=== PATIENT | female | born 1950 | race Caucasian/White ===

== ENCOUNTER → 2016-07-11 | Outpatient (CLI) | payer MEDICARE, BC ==
--- NOTE | 2016-07-11 13:55 | BD ---
EXAMINATION TYPE: MG DEXA axial skeleton. DATE OF EXAM: 07/11/2016 12:41 PM COMPARISON: DEXA bone scan February 28, 2010. CLINICAL HISTORY: Height: 68inches Weight: 200 FRAX RISK QUESTIONS: Alcohol (3 or more units per day): no Family History (Parent hip fracture): no Glucocorticoids (More than 3mos): no (Ex: prednisone, prednisolone, methylprednisolone, dexamethasone, and hydrocortisone). History of Fracture in Adulthood: ankle about 20 years ago Secondary Osteoporosis: 1. Type 1 Diabetes: no 2. Hyperthyroidism: no 3. Menopause before 45: no 4. Malnutrition: no 5. Chronic liver disease: no Rheumatoid Arthritis: no Current Tobacco Use: no RISK FACTORS HISTORY OF: Family History of Osteoporosis: yes, mother Drink Alcohol: very occasionally, socially Active: yes Diet low in dairy products/other sources of calcium: no Postmenopausal woman: yes Take estrogen and/or progesterone medications: not now How long: started age 54 & took for about four years Lost more than 2 inches in height since high school: no Frequent falls: no Poor Health: no Hyperparathyroidism: no Adrenal Insufficiency: no MEDICATIONS: Prednisone or other steroids: no Thyroid Medications: no Osteoporosis Medications: no Additional Medications: multivitamin, cholesterol meds, high blood pressure EXAM MEASUREMENTS: Bone mineral densitometry was performed using the [employer] System. Bone mineral density as measured about the Lumbar spine is: ----- L1-L4(G/cm2): 1.246 T Score Values are as follows: ----- L2: 0.1 ----- L3: 1.0 ----- L4: 0.4 ----- L1-L4: 0.6 Bone mineral density has: Decreased -6.3% since study of: 02/28/2010 Bone mineral density about the R hip (g/cm2): 0.862 Bone mineral density about the L hip (g/cm2): 0.905 T Score values are as follows: -----R Neck: -1.3 -----L Neck: -1.0 -----R Intertrochanter: -0.4 -----L Intertrochanter: -0.5 Bone mineral density has: Decreased -6.9% since study of: 02/28/2010 IMPRESSION: Osteopenia (T Score between -2.5 and -1 as noted by T score values in femoral neck level of the right hip is now present. Bone density is decreased or diminished from prior. There is now slightly increa sed risk of fracture and the patient may be considered for treatment. Re-Screen 1-2 years. NOTE: T-SCORE=SD OF THE YOUNG ADULT MEAN.
--- NOTE | 2016-07-12 08:09 | MM ---
Reason for exam: screening (asymptomatic). Last mammogram was performed 3 years ago. History: Patient is postmenopausal. Taking estrogen for 4 years 2 months beginning at age 53. Taking progesterone for 4 years 2 months beginning at age 53. Physical Findings: A clinical breast exam by your physician is recommended on an annual basis and results should be correlated with mammographic findings. MG 3D Screening Mammo W/Cad Bilateral CC and MLO view(s) were taken. Prior study comparison: July 09, 2013, bilateral digital screening mammo w/CAD. January 31, 2012, bilateral digital screening mammo w/CAD. The breast tissue is heterogeneously dense. This may lower the sensitivity of mammography. There is no discrete abnormality. No significant changes when compared with prior studies. ASSESSMENT: Negative, BI-RAD 1 RECOMMENDATION: Routine screening mammogram of both breasts in 1 year.
== END | disposition home or self-care (01) ==
LOC: RADMAMWWP 11:44
PROVIDERS: ATTEND Family Medicine
DX: Z12.31 Encounter for screening mammogram for malignant neoplasm of breast (principal); M85.851 Other specified disorders of bone density and structure, right thigh
CPT/HCPCS: 77080; 77063; G0202

== ENCOUNTER 2017-12-17 13:20 | Emergency (ER) | payer MEDICARE, BC ==
[2017-12-17 13:47] VITALS: BP 126/85; PULSE 88; RESP 16; TEMP 98.7
[2017-12-17] MEDS ORDERED: IBUPROFEN 600 MG TAB PO STA (13:55)
--- NOTE | 2017-12-17 14:16 | ED ---
Lower Extremity Injury HPI - General Chief Complaint: Extremity Injury, Lower Stated Complaint: lt ankle injury Time Seen by Provider: 12/17/17 13:48 Source: patient, RN notes reviewed Mode of arrival: ambulatory Limitations: no limitations - History of Present Illness Initial Comments: This is a 67-year-old female who presents to the emergency department with chief complaint of left ankle injury. Patient states that at approximately 11: 30 this morning she was walking and fell. She complains of pain to both sides of the left ankle. Patient states that she is having difficulty bearing weight and ambulating but is able to move the ankle normally. She denies any other injuries or trauma. Denies recent fevers or chills, chest pain or shortness of breath, abdominal pain, nausea or vomiting, numbness or tingling. - Related Data Home Medications Medication Instructions Recorded Confirmed Atorvastatin [Lipitor] 20 mg PO HS 02/02/15 02/03/15 Lisinopril-Hctz 20-25 mg 1 each PO DAILY 02/02/15 02/03/15 [Zestoretic 20-25] amLODIPine [Norvasc] 5 mg PO DAILY 02/02/15 02/03/15 Previous Rx's Medication Instructions Recorded Ibuprofen 600 mg PO Q6HR #20 tablet 12/17/17 Allergies Allergy/AdvReac Type Severity Reaction Status Date / Time No Known Allergies Allergy Verified 02/02/15 13:54 Review of Systems ROS Statement: Those systems with pertinent positive or pertinent negative responses have been documented in the HPI. ROS Other: All systems not noted in ROS Statement are negative. Past Medical History Past Medical History: Hypertension Additional Past Medical History / Comment(s): "PROLAPSE HEART VALVE" History of Any Multi-Drug Resistant Organisms: None Reported Past Surgical History: Orthopedic Surgery, Tubal Ligation Additional Past Surgical History / Comment(s): CARPAL TUNNEL -BILATERAL Past Anesthesia/Blood Transfusion Reactions: No Reported Reaction Past Psychological History: No Psychological Hx Reported Smoking Status: Never smoker Past Alcohol Use History: Rare Past Drug Use History: None Reported - Past Family History Sister(s) Family Medical History: Cancer General Exam - General Exam Comments Initial Comments: General: Awake and alert, well-developed; in no apparent distress. Sitting comfortably in a wheelchair. HEENT: Head atraumatic, normocephalic. Pupils are equal, round and reactive to light. Extraocular movements intact. Oropharynx moist without erythema or exudate. Neck: Supple. Normal ROM. Cardiovascular: Regular rate and rhythm. No murmurs, rubs or gallops. Chest symmetrical. Respiratory: Lungs clear to auscultation bilaterally. No wheezes, rales or rhonchi. Normal respiratory effort with no use of accessory muscles. Musculoskeletal: Normal range of motion of the left ankle. There is tenderness and soft tissue swelling at the lateral and medial malleoli. Sensation is intact. Pedal pulses 2+ equal and palpable bilaterally. Skin: [place], warm and dry without rashes or lesions. Neurological: Alert and oriented x3. CN II-XII grossly intact. Speech is fluent and answers are appropriate. No focal neuro deficits. Psychiatric: Normal mood and affect. No overt signs of depression or anxiety noted. Limitations: no limitations Course Vital Signs 12/17/17 13:45 Temperature 98.7 F Pulse Rate 88 Respiratory 16 Rate Blood Pressure 126/85 O2 Sat by Pulse 99 Oximetry Procedures - Orthopedic Splinting/Casting Injury #1 Side: left Lower Extremity Injury Location: ankle Lower Extremity Immobilizer: posterior splint, synthetic pre-padded splint Medical Decision Making - Medical Decision Making This is a 67-year-old female who presents to emergency department with chief complaint of left ankle injury. Patient reports falling earlier today and complains of left ankle pain. On physical examination, there is bimalleolar tenderness and swelling. Patient does have normal range of motion of the ankle and is neurovascularly intact. X-ray of the left ankle revealed evidence for ligamentous injury as well as a nondisplaced subchondral fracture of the medial talar dome. A posterior short leg posterior splint was placed and patient tolerated well without complication. She is neurovascularly intact. Recommended non-weightbearing. Recommended rest, ice, elevation and Ibuprofen as needed for pain and inflammation. Recommended following up with orthopedics within 1-2 days. Patient is in agreement with plan and voices understanding. All questions were answered. - Radiology Data Radiology results: report reviewed, image reviewed X-ray left ankle impression: 1. Suspect nondisplaced large subchondral fracture fragment of the medial talar dome. 2. Extensive circumferential soft tissue swelling suggesting underlying ligamentous sprains. 3. Chronic ununited fracture fragments below the lateral malleolus. 4. Chronic insertional Achilles tendinopathy. Disposition Clinical Impression: Talar dome fracture, Ankle sprain and strain Disposition: HOME SELF-CARE Condition: Good Instructions: Ankle Sprain (ED), Talar Fracture in Adults (ED) Additional Instructions: Please follow-up with orthopedics within 1-2 days. Please rest, ice, elevate and take ibuprofen as needed. Please remain nonweightbearing. Please take medications as prescribed. Please follow up with primary care provider within 1- 2 days. Return to emergency department if symptoms should worsen or any concerns arise. Prescriptions: Ibuprofen 600 mg PO Q6HR #20 tablet Is patient prescribed a controlled substance at d/c from ED?: No Referrals: Marquita Witt DO [Primary Care Provider] - 1-2 days Tom Bateman DO [Doctor of Osteopathic Medicine] - 1-2 days Time of Disposition: 15:14
--- NOTE | 2017-12-17 14:28 | XR ---
EXAMINATION TYPE: XR ankle complete LT DATE OF EXAM: 12/17/2017 COMPARISON: NONE HISTORY: 67-year-old female follow earlier, bimalleolar pain. TECHNIQUE: 3 views FINDINGS: There is abnormal lucency within the medial talar dome. Ankle joint effusion with circumferential sof t tissue swelling at the ankle. Corticated fragments below the lateral malleolus measuring up to 1.0 cm. Bulky enthesopathy posterior calcaneus with mild thickening at the Achilles insertion. Small to m oderate plantar calcaneal spur also noted. Some enthesopathy also at the base of the fifth metatarsal . No additional acute fracture seen. IMPRESSION: 1. Suspect nondisplaced large subchondral fracture fragment of the medial talar dome. 2. Extensive circumferential soft tissue swelling suggesting underlying ligamentous sprains. 3. Chronic ununited fracture fragments below the lateral malleolus. 4. Chronic insertional Achilles tendinopathy.
== END 2017-12-17 15:30 | disposition home or self-care (01) ==
LOC: EC 13:20
DX: S92.145A Nondisplaced dome fracture of left talus, initial encounter for closed fracture (principal); I10 Essential (primary) hypertension; Z79.899 Other long term (current) drug therapy; W19.XXXA Unspecified fall, initial encounter; Y93.01 Activity, walking, marching and hiking; Y92.009 Unspecified place in unspecified non-institutional (private) residence as the place of occurrence of the external cause
CPT/HCPCS: 29515; 99283

== ENCOUNTER → 2017-12-20 | Outpatient (CLI) | payer MEDICARE, BC ==
--- NOTE | 2017-12-20 08:36 | CT ---
EXAMINATION TYPE: CT ankle LT wo con DATE OF EXAM: 12/20/2017 COMPARISON: Left ankle radiographs dated 12/17/2017 HISTORY: Lt ankle pain CT DLP: 203 mGycm Automated exposure control for dose reduction was used. TECHNIQUE: Contiguous axial slices of the left ankle were obtained with coronal and sagittal reformat s provided for review. Additionally 3-D images of the osseous structures were obtained at a separate workstation and submitted for interpretation. FINDINGS: There is confirmation of a medial talar dome comminuted fracture with 2 mm depression of the fracture fragment and extent into the talotibial joint space. Again there is overlying circumferential soft t issue swelling of the ankle most prominent over the medial malleolus. The fracture extends into the p osterior aspect of the talar dome however does not extend into the talocalcaneal joint space. Well-co rticated fragment of the posterior talus may relate to prior injury with no acute fracture seen. Well -corticated old healed fracture deformity of the base of the fifth metatarsal is also seen. Enthesopathy of the Achilles tendon is pronounced with small plantar enthesophyte. Evaluation of the tendons and ligaments are limited on CT and further limited by the extensive soft tissue swelling. No gross evidence of discontinuity is seen. Sinus tarsus appears unremarkable. Moderate midfoot and hin dfoot dorsal osseous irregularity relates to degenerative change. IMPRESSION: 1. DEPRESSED (2 MM) COMMINUTED SUBCHONDRAL FRACTURE OF THE MEDIAL TALAR DOME EXTENDING INTO THE TIBIO TALAR JOINT SPACE WITH EXTENSIVE OVERLYING SOFT TISSUE SWELLING. 2. WELL-CORTICATED OLD HEALED FRACTURE DEFORMITIES THAT ARE NONUNITED AT THE BASE OF THE FIFTH METATA RSAL AND POSTERIOR MALLEOLUS. 3. REDEMONSTRATION SEQUELA OF CHRONIC ACHILLES TENDINOPATHY AND SMALL PLANTAR ENTHESOPHYTE.
== END ==
LOC: RADCTMAIN 06:50
PROVIDERS: ATTEND Orthopaedic Surgery
DX: S92.132A Displaced fracture of posterior process of left talus, initial encounter for closed fracture (principal); S92.352A Displaced fracture of fifth metatarsal bone, left foot, initial encounter for closed fracture; S82.62XA Displaced fracture of lateral malleolus of left fibula, initial encounter for closed fracture; M77.52 Other enthesopathy of left foot and ankle

== ENCOUNTER 2020-06-17 09:36 | Day surgery (SDC) | payer MEDICARE, BC ==
[2020-06-15 15:16] VITALS: BMI 28.0
[2020-06-17 09:55] VITALS: TEMP 97.6
[2020-06-17] MEDS ORDERED: LIDOCAINE 1% (10MG/ML) FOR IV START INTRADERMA ONE (09:58)
[2020-06-17] MEDS ORDERED: LACTATED RINGERS 1,000 ML IV ONE (10:00)
[2020-06-17] MEDS ORDERED: PROPOFOL 10 MG/ML 20 ML VIAL IV ONE (10:40)
--- NOTE | 2020-06-17 10:59 | P.PCN ---
Date of Procedure: 06/17/20 Procedure(s) Performed: BRIEF HISTORY: Patient is a 69-year-old pleasant white female scheduled for an elective colonoscopy as a part of evaluation of prior history of colon polyps. Last coloscopy was 5 years ago. PROCEDURE PERFORMED: Colonoscopy. PREOPERATIVE DIAGNOSIS: History of colon polyps. IV sedation per Anesthesia. PROCEDURE: After informed consent was obtained, the patient, was brought into the endoscopy unit. IV sedation was administered by Anesthesia under continuous monitoring. Digital rectal examination was normal. Initially the Olympus CF-160 flexible video colonoscope was then inserted in the rectum, gradually advanced into the cecum without any difficulty. Careful examination was performed as the scope was gradually being withdrawn. Ileocecal valve and the appendiceal orifice were visualized and appeared normal. Prep was excellent. Mucosa of the cecum, ascending colon, transverse colon, descending colon, sigmoid colon, and rectum appeared normal. Scattered sigmoid diverticulosis seen. Retroflexion was performed in the rectum and no lesions were seen. The patient tolerated the procedure well. IMPRESSION: Normal-appearing colon from rectum to cecum with no evidence of colorectal neoplasia. Scattered sigmoid diverticulosis RECOMMENDATIONS: Findings of this examination were discussed with the patient as well as her family. She was advised to have a repeat screening colonoscopy in 10 years..
[2020-06-17 11:07] VITALS: RESP 16
[2020-06-17 11:18] VITALS: BP 127/72; PULSE 88
== END 2020-06-17 11:40 | disposition home or self-care (01) ==
LOC: ORWHC2ENDO 09:36
PROVIDERS: ATTEND Internal Medicine Gastroenterology
DX: Z12.11 Encounter for screening for malignant neoplasm of colon (principal); K57.30 Diverticulosis of large intestine without perforation or abscess without bleeding; Z86.010 Personal history of colon polyps; I10 Essential (primary) hypertension; E78.5 Hyperlipidemia, unspecified; I34.1 Nonrheumatic mitral (valve) prolapse; F41.9 Anxiety disorder, unspecified; Z97.2 Presence of dental prosthetic device (complete) (partial); Z98.890 Other specified postprocedural states; Z79.899 Other long term (current) drug therapy
CPT/HCPCS: J2704; G0105

== ENCOUNTER → 2020-10-06 | Outpatient (CLI) | payer MEDICARE, BC ==
--- NOTE | 2020-10-06 17:25 | US ---
EXAMINATION TYPE: US venous doppler duplex UE RT DATE OF EXAM: 10/06/2020 COMPARISON: NONE CLINICAL HISTORY: M25.511 PAIN RT SHOULDER, M79.621 PAIN RT UPPER ARM. pain right arm SIDE PERFORMED: right Right Arm: no evidence of DVT as visualized IMPRESSION: No evidence of DVT at this time.
== END | disposition home or self-care (01) ==
LOC: RADUSWWP 16:07
PROVIDERS: ATTEND Orthopaedic Surgery
DX: M25.511 Pain in right shoulder (principal); M79.621 Pain in right upper arm

== ENCOUNTER → 2021-09-08 | Outpatient (CLI) | payer MEDICARE, BC ==
--- NOTE | 2021-09-08 16:50 | BD ---
EXAMINATION TYPE: Axial Bone Density DATE OF EXAM: 09/08/2021 COMPARISON: NONE CLINICAL HISTORY: 70 year old Female. ICD-10 CODE: Z78.0 Asymptomatic Menopausal State Height: 69 Weight: 194.1 FRAX RISK QUESTIONS: Alcohol (3 or more units per day): no Family History (Parent hip fracture): yes Glucocorticoids (More than 3mos): no (Ex: prednisone, prednisolone, methylprednisolone, dexamethasone, and hydrocortisone). History of Fracture in Adulthood: yes Secondary Osteoporosis: 1. Type 1 Diabetes: no 2. Hyperthyroidism: no 3. Menopause before 45: no 4. Malnutrition: no 5. Chronic liver disease: no Rheumatoid Arthritis: no Current Tobacco Use: no RISK FACTORS HISTORY OF: Surgery to Spine/Hip(right/left)/Wrist (right/left): no Family History of Osteoporosis: no Active: yes Diet low in dairy products/other sources of calcium: yes Postmenopausal woman: yes Lost more than 2 inches in height since high school: no MEDICATIONS: Additional History: EXAM MEASUREMENTS: Bone mineral densitometry was performed using the [employer] System. Bone mineral density as measured about the Lumbar spine is: ----- L1-L4(G/cm2): 1.186 T Score Values are as follows: ----- L1: -0.1 ----- L2: 0.6 ----- L3: -0.4 ----- L4: 0.0 ----- L1-L4: 0.1 Bone mineral density has: decreased -4.1 % since study of: 07.11.2016 Bone mineral density about the R hip (g/cm2): 0.791 Bone mineral density about the L hip (g/cm2): 0.884 T Score values are as follows: -----R Neck: -1.8 -----L Neck: -1.1 -----R Total: -0.5 -----L Total: -0.2 Bone mineral density has: decreased -3.7 % since study of: 07.11.2016 FRAX%s: The graph provided illustrates a 26.2% chance for a major osteoporotic fx and a 6.8% chance f or the hips probability for fx in 10 years time. IMPRESSION: Osteopenia (T Score between -2.5 and -1). There is slightly increased risk of fracture and the patient may be considered for treatment. Re-Screen 2-5 years. NOTE: T-SCORE=SD OF THE YOUNG ADULT MEAN.
--- NOTE | 2021-09-11 11:26 | MM ---
Reason for exam: screening (asymptomatic). Last mammogram was performed 5 years and 2 months ago. History: Patient is postmenopausal. Took estrogen for 4 years 2 months beginning at age 53. Took progesterone for 4 years 2 months beginning at age 53. Physical Findings: A clinical breast exam by your physician is recommended on an annual basis and results should be correlated with mammographic findings. MG 3D Screening Mammo W/Cad Bilateral CC and MLO view(s) were taken. Prior study comparison: July 11, 2016, bilateral MG 3d screening mammo w/cad. July 09, 2013, bilateral digital screening mammo w/CAD. The breast tissue is heterogeneously dense. This may lower the sensitivity of mammography. No significant changes when compared with prior studies. ASSESSMENT: Benign, BI-RAD 2 RECOMMENDATION: Routine screening mammogram of both breasts in 1 year.
== END | disposition home or self-care (01) ==
LOC: RADMAMWWP 14:56
PROVIDERS: ATTEND Family Medicine
DX: Z12.31 Encounter for screening mammogram for malignant neoplasm of breast (principal); M85.89 Other specified disorders of bone density and structure, multiple sites; Z78.0 Asymptomatic menopausal state
CPT/HCPCS: 77063; 77067; 77080